=== PATIENT | male | born 1960 | race Caucasian/White ===

== ENCOUNTER 2024-10-11 18:31 | Emergency (ER) | payer OTHER, SELFPAY ==
--- NOTE | ~2024-10-11 | XR_ITS ---
EXAM: XR finger 2nd RT min 2V DATE: 10/11/2024 19:39 HISTORY: AMPUTATION DISTAL TIP 2ND DIGIT RIGHT HAND. . COMPARISON: None available. FINDINGS: Normal mineralization. No fracture or dislocation. No lytic or blastic lesion. Mild scatte red degenerative change. No erosion or periosteal change. Soft tissue defect at the tip of the second digit which extends quite close to the cortical surface of the distal tuft. IMPRESSION: No acute osseous finding in the second digit. Correlate clinically for potential bone exp osure. Reviewed, dictated and finalized at location K. IMPRESSION: No acute osseous finding in the second digit. Correlate clinically for potential bone exposure.
[2024-10-11 18:32] VITALS: BP 156/102; PULSE 72; RESP 18; TEMP 36.8; O2SAT 98
--- NOTE | 2024-10-11 18:33 | ED_ITS ---
HPI - Extremity Injury (Upper) General Chief Complaint: Wound/Laceration Stated Complaint: right pointer finger tip cut off Time Seen by Provider: 10/11/24 18:32 Source: patient and family Mode of arrival: ambulatory Limitations: no limitations History of Present Illness HPI narrative: Patient is a 64-year-old male with a right hand pointer finger flexor surface partial amputation of the distal digit. Tetanus not up-to-date. His finger got stuck in a farm piece of equipment which was accidentally turned on while his hand was in the machine. Only injury is this pointer finger. MD complaint: injury to: right and finger ( Pointer finger distal digit) Onset (ago): minute(s) ( 30) Other injuries: none Place: work and outdoors Severity: moderate Severity scale (1-10): 2 Relieving factors: immobilization Exacerbating factors: movement of extremity Context: injury ( farming equipment) Associated symptoms: denies other symptoms Treatments prior to arrival: bandage Related Data Allergies Allergy/AdvReac Type Severity Reaction Status Date / Time eggs Allergy Severe Swelling Uncoded 10/11/24 19:09 of Lip/Tongue/Throat shellfish Allergy Severe Swelling Uncoded 10/11/24 19:09 of Lip/Tongue/Throat Review of Systems Review of Systems: All systems reviewed & are unremarkable except as noted in HPI and below Constitutional: Constitutional: Reports no additional constitutional complaints Eyes: Eyes: Reports no additional eye complaints ENT: Reports system reviewed and no additional complaints, except as documented Cardiovascular: Cardiovascular: Reports no additional cardiovascular complaints Respiratory: Respiratory: Reports no additional respiratory complaints Gastrointestinal: Gastrointestinal: Reports no additional gastrointestinal complaints Genitourinary: Genitourinary: Reports no additional male genitourinary complaints Musculoskeletal: Musculoskeletal: Reports no additional musculoskeletal complaints Integumentary/Breasts: Skin/Breast: Reports system reviewed and no additional complaints, except as docu Neurologic: Reports system reviewed and no additional complaints, except as documented Psychiatric: Psychiatric: Reports no additional psychiatric complaints Endocrine: Endocrine: Reports no additional endocrine complaints Hematologic/Lymphatic: Hematologic/Lymphatic: Reports no additional hematolo gic/lymphatic complaints Allergic/Immunologic: Allergic/Immunologic: Reports no additional allergic/immunologic complaints Exam Const: General: healthy appearing Nutritional Appearance: well nourished Orientation/consciousness: patient oriented x3 HENMT: Head: normal to inspection Ears: external ears normal Face/Nose/Sinus: Normal external nose present Eyes: Conjunctivae: conjunctivae normal Pupils: Equal, round and reactive pupils present EOM: EOMs intact bilaterally Neck: Neck: normal visual inspection Chest: Chest palpation & inspection: normal inspection of the chest Resp: Effort & Inspection: normal respiratory effort and not labored Auscultation: clear to auscultation bilaterally and no crackles Cardio: Rate: regular rate Rhythm: regular rhythm Heart sounds: no murmurs GI: Inspection: non-distended GI Palp: Yes Soft to palpation and No Tenderness to palpation present (GI) Auscultation: normal bowel sounds : General: Yes bladder normal to palpation Back/Spine/Pelvis: Back: no CVA tenderness Skin: General skin exam: normal color Rashes: no rashes Wounds: wound noted Other: right pointer finger flexor surface distal tip has a quarter-size avulsion of the skin and partial amputation of the distal region; bleeding has stopped; no signs of infection at this point and area was cleaned; patient was soaked for 30 minutes and iodine base Neuro: General: patient oriented x3, moves all extremities and no meningeal signs Cranial nerves: Yes Nystagmus not present Speech: normal speech Gait exam (Neuro): Normal gait present Extrem: General: normal to inspection Psych: Mental Status: mental status grossly normal Affect: normal affect Attitude: cooperative Course Vital Signs Vital signs: Vital Signs Temperature 36.8 C 10/11/24 18:32 Pulse Rate 72 10/11/24 18:32 Respiratory Rate 18 10/11/24 18:32 Blood Pressure 156/102 H 10/11/24 18:32 Pulse Oximetry 98 10/11/24 18:32 Oxygen Delivery Room Air 10/11/24 18:32 Temperature 36.8 C 10/11/24 18:32 Pulse Rate 72 10/11/24 18:32 Respiratory Rate 18 10/11/24 18:32 Blood Pressure 156/102 H 10/11/24 18:32 Pulse Oximetry 98 10/11/24 18:32 Oxygen Delivery Room Air 10/11/24 18:32 MDM - Extremity Injury (Upper) MDM Narrative Medical decision making narrative: patient is a 64-year-old male with a right finger pointer distal tip partial amputation with farming equipment. We will do x-ray, tetanus shot, antibiotics and discussed with plastics about need for skin graft. After discussing the case with Hand surgery in [place] they said to let this heal up on its own intention. Appointment was made with the hand surgeon for follow-up. Wound care was also discussed with the surgeon for the follow-up planning. Imaging Data Attestation: I personally reviewed and interpreted this imaging study as follows: Radiologist's impression: X-ray right pointer finger was negative for acute process but suggestive of open bone through the soft tissue Discharge Plan Discharge Clinical Impression: Avulsion of skin Amputation of finger tip Qualifiers: Encounter type: initial encounter Qualified Code(s): S68.119A - Complete traumatic metacarpophalangeal amputation of unspecified finger, initial encounter Patient Disposition: Home Condition: Stable Instructions: Antibiotic Form, Finger Amputation (ED), Skin Avulsion (ED) Additional Instructions: Please follow-up with Dr. Soria the hand surgeon in [place] at the [facility]. . You have an appointment already set for October 29 at 3:30 p.m.. The surgeon would like you to use soap and water daily to the wound as well as triple antibiotic ointment and a light bandage. This is on a daily basis of wound care. Patient Language: Kiswahili Prescriptions: New cephalexin 500 mg capsule 500 mg PO BID 7 Days Qty: 14 0RF Follow-up/Referrals: UNKNOWN,DOCTOR [Non-Staff] - Time of Disposition: 20:09
--- OUTSIDE RECORDS SUMMARY | 2024-10-11 18:33 | XMS_ITS | Continuity of Care Document ---
Author Organization [facility] Address [address] [place] [id number] Care Team Providers Care General Inspector Name Role Phone Fernando Lewis Primary Care Physician [phone] Encounter [facility] [id number] Date(s): 10/09/24 - 10/09/[address] [address]- (0 ) - Discharge Disposition: Home or Self Care Encounter Type: Between Visit Medications gabapentin 300 mg oral capsule See Instructions, TAKE 1 TO 2 CAPSULES BY MOUTH EVERY 8 HOURS NEEDED, # 180 cap, 0 Refill(s), [facility]acy: [id number] Start Date: 10/09/24 Status: Ordered Quantity: 180.0 Unit: Repeat number: 1 Symbicort 80 mcg-4.5 mcg/inh inhalation aerosol See Instructions, INHALE 2 PUFFS BY MOUTH TWICE A DAY, # 10.2 EA, 5 Refill(s), Pharmacy: [id number] Start Date: 07/08/24 Status: Ordered Quantity: 10.2 Unit: Repeat number: 1 triamcinolone 0.1% topical cream See Instructions, APPLY 1-2 GRAMS TO THE AFFECTED AREA TWICE A DAY NEEDED, # 80 gm, 1 Refill(s),Pharmacy: [email or web address] [id number] Start Date: 01/23/24 Status: Ordered Quantity: 80.0 Unit: g Repeat number: 1 Social History Social History Type Response Sex Male Sex Representation Male (finding) Patient Care team information Care Team Personnel Name: Fernando Lewis MD Position: Physician Member Role: Primary Care Physician Address: [address] [place] [phone]- Telecom:
[2024-10-11] MEDS: TETANUS,DIPHTHERIA,AC PERTUSSIS ADULT 0.5 ML (ADACEL) IM (19:08)
[2024-10-11] MEDS: CEPHALEXIN 500 MG CAPSULE PO (20:14)
[2024-10-11] MEDS: NEOMYCIN/POLYMYXIN/BACITRACIN OINTMENT PACKET 2 PACKET TOPICAL (20:15)
[2024-10-11] MEDS: HYDROcodone/acetaminophen (*CRX) 5-325 MG TABLET 1 TAB PO (20:30)
[2024-10-11 21:01] VITALS: BP 139/89; PULSE 75; RESP 16; O2SAT 98
== END 2024-10-11 21:04 | disposition home or self-care (01) ==
PROVIDERS: Emergency Provider Emergency Medicine
DX: S68.110A Complete traumatic metacarpophalangeal amputation of right index finger, initial encounter (principal); Z23 Encounter for immunization; W30.89XA Contact with other specified agricultural machinery, initial encounter
CPT/HCPCS: 73140; 90471; 90715; 99283; A9270